=== PATIENT | female | born 1965 | race Caucasian/White ===

== ENCOUNTER 2016-07-12 11:08 | Inpatient (IN) | payer BC ==
[~2016-07-12] VITALS: Ht 165.1 cm; Wt 76.4 kg
[~2016-07-12 11:08] MED LIST: IBUP-103 PO
[2016-07-12] MEDS ORDERED: MISCCAP80 PO (11:35)
[2016-07-12] MEDS ORDERED: PRED20TA PO (11:35)
[2016-07-12] MEDS ORDERED: MOXI400T2 PO (11:35)
--- NOTE | 2016-07-12 11:54 | EMERGENCY ROOM VISIT NOTE ---
History Report prepared by Alana: Nésotr Hunter Under the Supervision of: Dr. Ellen Escobedo M.D. First contact with patient: 11:38 Chief Complaint: WEAKNESS Stated Complaint: TENDON MUSCLE REACTION TO MOXIFLOXIN-LT SIDE History of Present Illness The patient is a 50 year old female who presents to the Emergency Room with complaints of persistent left-sided weakness that was first noticed at 0100 yesterday. The patient notes that her left hip, knee and arm are feeling "rubbery." There are no worsening are relieving factors known to the pateint. The patient saw Dr. Stacy two days ago and was diagnosed with sinusitis. She was given prescriptions for moxifloxacin and prednisone. She had her first dose of moxifloxacin at 1800 that night. The patient first noticed the weakness when she woke up at 0100 that night to use the restroom. She did not take anything other than the antibiotic and prednisone. The patient's blood pressure was [address] she saw Dr[address] Stacy. The patient's partner notes that the patient often has elevated blood pressure when she sees a doctor. Source of History: patient, other (partner) Onset: 0100 yesterday Position: other (left side) Quality: other (weakness) Timing: other (persistent) Modifying Factors (Worsening): other (none) Modifying Factors (Relieving): other (none) Review of Systems See HPI for pertinent positives & negatives. A total of 10 systems reviewed and were otherwise negative. Past Medical & Surgical Medical Problems: (1) Bronchitis (2) Left-sided weakness (3) Migraine (4) Pneumonia Family History Diabetes mellitus Hypertension Lung disease Social History Smoking Status: Current Every Day Smoker Alcohol Use: none Marital Status: in relationship Housing Status: lives with significant other Occupation Status: employed Current/Historical Medications Scheduled Moxifloxacin Hcl (Avelox), 400 MG PO DAILY Prednisone (Prednisone), 0 PO DAILY Probiotic Product (Probiotic), 1 CAP PO DAILY Allergies Coded Allergies: Moxifloxacin (Unverified Allergy, Intermediate, WEAKNESS, OTHER SYMPTOMS TODAY., 07/12/16) POSSIBLE ALLERGY. PATIENT UNSURE, BUT JUST STARTED THIS MEDICATION AND WAS HAVING SYMPTOMS. 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 Physical Exam Vital Signs Date Time Temp Pulse Resp B/P Pulse Ox O2 Delivery O2 Flow Rate FiO2 3/18/17 17:02 79 18 154/101 96 Room Air 07/12/16 15:12 79 18 167/110 95 Room Air 07/12/16 13:50 83 07/12/16 13:23 88 20 158/94 Room Air 07/12/16 12:40 89 18 168/108 96 Room Air 07/12/16 11:12 36.8 76 20 196/116 96 Room Air Physical Exam Vital signs reviewed. General: Well-appearing female, in no significant distress. HEENT: No scleral icterus, PERRLA, neck supple. Atraumatic. Cardiovascular: Regular rate and rhythm, no extra sounds. Pulmonary: Clear to auscultation bilaterally, normal work of breathing. Abdomen: Soft, nontender, nondistended, positive bowel sounds. Musculoskeletal: Atraumatic, no peripheral edema. Neurologic: Patient awake alert and oriented x 3. Cranial nerves 2 through 12 grossly intact. Ataxia to the left upper extremity with 3/5 strength. 2/5 strength left lower extremity. 5/5 strength right upper and lower extremities. Skin: Warm, dry, no rash Medical Decision & Procedures ER Provider Diagnostic Interpretation: X-ray results as stated below per my interpretation and radiologist interpretation. Other radiology results as stated below per my review and radiologist interpretation: CHEST ONE VIEW PORTABLE CLINICAL HISTORY: CVA, HTN dyspnea COMPARISON STUDY: No previous studies for comparison. FINDINGS: The bones soft tissues and hemidiaphragms are normal. The cardiomediastinal silhouette is normal. The lungs are clear. The pulmonary vasculature is normal. IMPRESSION: Negative chest. Electronically signed by: Lexx Gore M.D. 07/12/2016 12:53 PM Dictated Date/Time: 07/12/2016 12:[address]AST CT DOSE: 537.48 mGy.cm HISTORY: Mental status change HTN, CVA sx TECHNIQUE: Multiaxial CT images of the head were performed without the use of intravenous contrast. Comparison: None. Findings: The paranasal sinuses and mastoid air cells are clear. The calvarium and skull base are intact. The ventricles and sulci are within normal limits. There is no mass, hematoma, midline shift. Small low density focus medially adjacent to the right lateral ventricle transaxial image 15 a small subacute infarct must be considered. No evidence for hemorrhage. Impression: Small subacute right periventricular infarct. No evidence for hemorrhage. Electronically signed by: Lexx Gore M.D. 07/12/2016 1:00 PM Dictated Date/Time: 07/12/2016 12:58 PM Laboratory Results Test 07/12/16 10:45 07/12/16 12:25 07/12/16 12:28 07/12/16 15:25 Urine Color YELLOW Urine Appearance CLEAR (CLEAR) Urine pH 7.5 (4.5-7.5) Urine Specific [place] 1.015 (1.000-1.030) Urine Protein NEG (NEG) Urine Glucose (UA) NEG (NEG) Urine Ketones NEG (NEG) Urine Occult Blood NEG (NEG) Urine Nitrite NEG (NEG) Urine Bilirubin NEG (NEG) Urine Urobilinogen NEG (NEG) Urine Leukocyte Esterase NEG (NEG) Bedside Troponin I 0.000 ng/ml (0-0.045) Laboratory results per my review. Medications Administered Medications (Trade) Dose Ordered Sig/Maurice Route Start Time Stop Time Status Last Admin Dose Admin Lorazepam (Ativan Inj) 0.5 mg Q4H PRN IV 07/12/16 14:15 08/11/16 14:14 07/12/16 22:24 0.5 MG Lorazepam (Ativan Inj) 2 mg STK-MED ONCE .ROUTE 07/12/16 15:05 07/12/16 15:08 DC 07/12/16 15:11 0.5 MG ECG Indication: weakness Rate (beats per minute): 81 Rhythm: normal sinus Findings: nonspecific-ST abn (Lateral), prolonged QT (QTC 480), no ectopy ED Course 1140: Past medical records reviewed. The patient was evaluated in room A10. A complete history and physical examination was performed. 1211: Normodyne 10 mg IV. 1402: Discussed the case with Dr. Vargas, [facility] Hospitalist. The patient will be evaluated. Medical Decision Differential diagnosis: Etiologies such as metabolic, infection, hypo/hyperglycemia, electrolyte abnormalities, cardiac sources, intracerebral event, toxicologic, neurologic, as well as others were entertained. This patient was evaluated and appeared to be in no significant distress. Physical examination is highly concerning for CVA as the patient is markedly hypertensive with notable ataxia. Patient has appreciable weakness to the left upper and lower extremities. CT scan of the head is performed and reveals a right periventricular infarct. Laboratory work is fairly unrevealing. Patient' s blood pressure did improve without any intervention. The IV labetalol ordered was not administered. EKG reveals a sinus rhythm. Patient and her partner were informed of the findings. She will be evaluated by the hospitalist service for further management. Consults Time Called: 1350 Consulting Physician: Dr. Vargas [facility]. Returned Call: [phone]: Discussed the case with Dr. Vargas [facility]. The patient will be evaluated. Impression Primary Impression: CVA (cerebral vascular accident) Additional Impression: Weakness Scribe Attestation The scribe's documentation has been prepared under my direction and personally reviewed by me in its entirety. I confirm that the note above accurately reflects all work, treatment, procedures, and medical decision making performed by me. Departure Information Dispostion Being Evaluated By Hospitalist Referrals Nasir Stacy M.D. (PCP) Patient Instructions My [facility] Health Problem Qualifiers Primary Impression: CVA (cerebral vascular accident) CVA mechanism: embolism Laterality of affected vessel: right
[2016-07-12] MEDS ORDERED: LABETALOL HCL IV 5 MG/ML 20ML IV STA (12:11)
[2016-07-12 12:34] LABS: BASO % 0.2 %; BASO ABS # 0.02 K/uL (0-0.2); COMPLETE YES; EOS % 0.4 %; IG% 0.3 %; LYMPH % 16.1 %; LYMPH ABS # 1.87 K/uL (1.2-3.4); MEAN CELL VOLUME 91.8 fL (80-100); MEAN CORPUSCULAR HGB CONC 33.8 g/dl (32-36); MONO % 2.5 %; NEUT % 80.5 %; PLATELET COUNT 301 K/uL (130-400); WHITE BLOOD COUNT 11.65 K/uL (4.8-10.8)
[2016-07-12 12:49] LABS: INR 0.9 (0.9-1.1); PROTHROMBIN TIME (PATIENT) 9.7 SECONDS (9.0-12.0)
--- NOTE | 2016-07-12 12:55 | DIAGNOSTIC IMAGING REPORT ---
CHEST ONE VIEW PORTABLE CLINICAL HISTORY: CVA, HTN dyspnea COMPARISON STUDY: No previous studies for comparison. FINDINGS: The bones soft tissues and hemidiaphragms are normal. The cardiomediastinal silhouette is normal. The lungs are clear. The pulmonary vasculature is normal. IMPRESSION: Negative chest. Electronically signed by: Lexx Gore M.D. 07/12/2016 12:53 PM Dictated Date/Time: 07/12/2016 12:53 PM
--- NOTE | 2016-07-12 13:01 | DIAGNOSTIC IMAGING REPORT ---
HEAD CT NONCONTRAST CT DOSE: 537.48 mGy.cm HISTORY: Mental status change HTN, CVA sx TECHNIQUE: Multiaxial CT images of the head were performed without the use of intravenous contrast. Comparison: None. Findings: The paranasal sinuses and mastoid air cells are clear. The calvarium and skull base are intact. The ventricles and sulci are within normal limits. There is no mass, hematoma, midline shift. Small low density focus medially adjacent to the right lateral ventricle transaxial image 15 a small subacute infarct must be considered. No evidence for hemorrhage. Impression: Small subacute right periventricular infarct. No evidence for hemorrhage. Electronically signed by: Lexx Gore M.D. 07/12/2016 1:00 PM Dictated Date/Time: 07/12/2016 12:58 PM
[2016-07-12 13:15] LABS: ALT/SGPT 16 U/L (12-78); BLOOD UREA NITROGEN 10 mg/dl (7-18); BUN/CREATININE RATIO 14.6 (10-20); CALCIUM 9.3 mg/dl (8.5-10.1); CARBON DIOXIDE 25 mmol/L (21-32); CHLORIDE 108 mmol/L (98-107); CREATININE 0.67 mg/dl (0.60-1.20); GLUCOSE 125 mg/dl (70-99); MAGNESIUM 2.4 mg/dl (1.8-2.4); POTASSIUM 3.5 mmol/L (3.5-5.1); SODIUM 143 mmol/L (136-145)
[2016-07-12 13:19] LABS: ALKALINE PHOSPHATASE 89 U/L (45-117); AST/SGOT 10 U/L (15-37); CKMB/CK RATIO 2.2 (0-3.0)
[2016-07-12 13:29] LABS: MANUAL MICROSCOPIC REQUIRED? NO; URINE APPEARANCE CLEAR (CLEAR); URINE BILIRUBIN NEG (NEG); URINE COLOR YELLOW; URINE NITRITE NEG (NEG); URINE PH 7.5 (4.5-7.5); URINE SPECIFIC GRAVITY 1.015 (1.000-1.030); UROBILINOGEN NEG (NEG)
[2016-07-12 13:31] LABS: REVIEW REQ? NO; SULFASALICYLIC ACID NEG (NEG)
[2016-07-12 13:33] LABS: ZZUR CULT IF INDIC CLEAN CATCH NO
[2016-07-12] MEDS ORDERED: ACETAMINOPHEN 325 MG TAB PO PRN (14:15)
[2016-07-12] MEDS ORDERED: LORAZEPAM 2 MG/ML 1 ML VIAL IV PRN (14:15)
[2016-07-12] MEDS ORDERED: ONDANSETRON INJ 2 MG/ML 2 ML VIAL IV PRN (14:15)
[2016-07-12] MEDS ORDERED: ACETAMINOPHEN IV 100 ML IV PRN (14:15)
[2016-07-12] MEDS ORDERED: PHARMACIST DISCHARGE MED REC CONSULT PRN (14:15)
[2016-07-12] MEDS ORDERED: METOPROLOL TARTRATE 1 MG/ML VIAL IV PRN (14:45)
--- NOTE | 2016-07-12 14:45 | History and Physical ---
History & Physical Date & Time of Service: Jul 12, 2016 at 14:35 Chief Complaint: Tendon Muscle Reaction To Moxifloxin-Lt Side Primary Care Physician: Nasir Stacy M.D. History of Present Illness Source: patient, friend The patient is a 50-year-old female who presents emergency department with complaint of left-sided weakness began at 0100 hrs. yesterday. She reports that she had been recently diagnosed with a sinus infection and started moxifloxacin and prednisone and had her first dosing of moxifloxacin 5 hours prior to symptoms developed. She first noticed the symptoms when she had gotten up to go to the restroom. Her blood pressures typically in the 150s to 160s when in the doctor's office, but otherwise is normal. She's had no recent travels, no sick exposures. She's had no previous occurrence the type of symptoms. She has had headaches in the past. Past Medical/Surgical History Medical Problems: (1) Bronchitis Status: Resolved (2) Migraine Status: Chronic (3) Pneumonia Status: Resolved Family History Diabetes mellitus Hypertension Lung disease Social History Smoking Status: Current Every Day Smoker Smokeless Tobacco Use: No Alcohol Use: none Drug Use: none Marital Status: in relationship Occupational Status: employed [employer] History of MDRO: No Allergies Coded Allergies: Moxifloxacin (Unverified Allergy, Intermediate, WEAKNESS, OTHER SYMPTOMS TODAY., 07/12/16) POSSIBLE ALLERGY. PATIENT UNSURE, BUT JUST STARTED THIS MEDICATION AND WAS HAVING SYMPTOMS. 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 Home Medications Scheduled Moxifloxacin Hcl (Avelox), 400 MG PO DAILY Prednisone (Prednisone), 0 PO DAILY Probiotic Product (Probiotic), 1 CAP PO DAILY Review of Systems The patient denies chest pain, palpitations, shortness of breath, cough, lower extremity swelling, vision change, hearing change, sore throat, fevers, chills, sweats, weight change, fatigue, nausea, vomiting, abdominal pain, pelvic pain, blood in urine or stool, dysuria, urinary frequency or urgency, memory loss, rash, abnormal bruising or bleeding, arthralgias or myalgias, back or neck pain , night sweats, or allergy symptoms. The review of systems is otherwise negative other than for that already noted above, and at least 10 systems have been reviewed. Physical Exam Vital Signs Date Time Temp Pulse Resp B/P Pulse Ox O2 Delivery O2 Flow Rate FiO2 07/12/16 13:50 83 07/12/16 13:23 88 20 158/94 Room Air 07/12/16 12:40 89 18 168/108 96 Room Air 07/12/16 11:12 36.8 76 20 196/116 96 Room Air The patient is awake, well-developed and adequately nourished, alert and oriented 3, normocephalic and atraumatic, lying in bed and in no acute distress. HEENT--PERRL, EOMI, mucous membranes and oropharynx moist. Neck--supple, no JVD or bruits, thyroid normal, trachea midline, no adenopathy. Heart--normal S1 and S2, no extra beats, no murmurs, rubs or gallops. Lungs--clear bilaterally with good air movement, no respiratory distress, no accessory muscle use. Abdomen--normal bowel sounds and soft, nontender and nondistended, no hernias or masses, no organomegaly. Extremities--no cyanosis, clubbing or edema. There are good distal pulses b/l. Dermatologic--normal skin turgor, normal color, warm and dry, no abnormal lymph nodes, no rash. Neurologic--decreased roll icer strength left upper extremity, equal muscle strength bilateral lower extremities, normal sensation upper and lower extremities. Rheumatologic--limited by neurologic process. Psychiatric--mildly anxious. Diagnostics Laboratory Results Results Past 24 Hours Test 07/12/16 10:45 07/12/16 12:25 07/12/16 12:28 07/12/16 14:02 Range/Units Urine Color YELLOW Urine Appearance CLEAR CLEAR Urine pH 7.5 4.5-7.5 Urine Specific [place] 1.015 1.000-1.030 Urine Protein NEG NEG Urine Glucose (UA) NEG NEG Urine Ketones NEG NEG Urine Occult Blood NEG NEG Urine Nitrite NEG NEG Urine Bilirubin NEG NEG Urine Urobilinogen NEG NEG Urine Leukocyte Esterase NEG NEG White Blood Count 11.65 4.8-10.8 K/uL Red Blood Count 4.90 4.2-5.4 M/uL Hemoglobin 15.2 12.0-16.0 g/dL Hematocrit 45.0 37-47 % Mean Corpuscular Volume 91.8 80-100 fL Mean Corpuscular Hemoglobin 31.0 25-34 pg Mean Corpuscular Hemoglobin Concent 33.8 32-36 g/dl Platelet Count 301 130-400 K/uL Mean Platelet Volume 9.0 7.4-10.4 fL Neutrophils (%) (Auto) 80.5 % Lymphocytes (%) (Auto) 16.1 % Monocytes (%) (Auto) 2.5 % Eosinophils (%) (Auto) 0.4 % Basophils (%) (Auto) 0.2 % Neutrophils # (Auto) 9.39 1.4-6.5 K/uL Lymphocytes # (Auto) 1.87 1.2-3.4 K/uL Monocytes # (Auto) 0.29 0.11-0.59 K/uL Eosinophils # (Auto) 0.05 0-0.5 K/uL Basophils # (Auto) 0.02 0-0.2 K/uL RDW Standard Deviation 44.7 36.4-46.3 fL RDW Coefficient of Variation 13.4 11.5-14.5 % Immature Granulocyte % (Auto) 0.3 % Immature Granulocyte # (Auto) 0.03 0.00-0.02 K/uL Prothrombin Time 9.7 9.0-12.0 SECONDS Prothromb Time International Ratio 0.9 0.9-1.1 Activated Partial Thromboplast Time 26.4 21.0-31.0 SECONDS Partial Thromboplastin Ratio 1.0 Sodium Level 143 136-145 mmol/L Potassium Level 3.5 3.5-5.1 mmol/L Chloride Level 108 98-107 mmol/L Carbon Dioxide Level 25 21-32 mmol/L Anion Gap 10.0 3-11 mmol/L Blood Urea Nitrogen 10 7-18 mg/dl Creatinine 0.67 0.60-1.20 mg/dl Est Creatinine Clear Calc Drug Dose 105.9 ml/min Estimated GFR () 120.5 Estimated GFR (Non- 103.9 BUN/Creatinine Ratio 14.6 10-20 Random Glucose 125 70-99 mg/dl Calcium Level 9.3 8.5-10.1 mg/dl Magnesium Level 2.4 1.8-2.4 mg/dl Total Bilirubin 0.3 0.2-1 mg/dl Direct Bilirubin < 0.1 0-0.2 mg/dl Aspartate Amino Transf (AST/SGOT) 10 15-37 U/L Alanine Aminotransferase (ALT/SGPT) 16 12-78 U/L Alkaline Phosphatase 89 45-117 U/L Total Creatine Kinase 37 26-192 U/L Creatine Kinase MB 0.8 0.5-3.6 ng/ml Creatine Kinase MB Ratio 2.2 0-3.0 Total Protein 7.4 6.4-8.2 gm/dl Albumin 3.7 3.4-5.0 gm/dl Bedside Troponin I 0.000 0-0.045 ng/ml Diagnostic Radiology Patient Name: MAGED ROBERTO Unit Number: [id number] Dictated: 07/12/161257 Transcribed: 07/12/161257 MS Printed Date/Time: [~ rep prt dt]/[~ rep prt tm] [~ rep ct labl] - [~ rep ct ivnm] [facility] [place] [address] Dictated: 07/12/161257 Transcribed: 07/12/16 1258 MS Printed Date/Time: [~ rep prt dt]/[~ rep prt tm] [~ rep ct labl] - [~ rep ct ivnm] HEAD CT NONCONTRAST CT DOSE: 537.48 mGy.cm HISTORY: Mental status change HTN, CVA sx TECHNIQUE: Multiaxial CT images of the head were performed without the use of intravenous contrast. Comparison: None. Findings: The paranasal sinuses and mastoid air cells are clear. The calvarium and skull base are intact. The ventricles and sulci are within normal limits. There is no mass, hematoma, midline shift. Small low density focus medially adjacent to the right lateral ventricle transaxial image 15 a small subacute infarct must be considered. No evidence for hemorrhage. Impression: Small subacute right periventricular infarct. No evidence for hemorrhage. Electronically signed by: Lexx Gore M.D. 07/12/2016 1:00 PM Dictated Date/Time: 07/12/2016 12:58 PM The status of this report is Signed. Draft = Not yet reviewed or approved by Radiologist. Signed = Reviewed and approved by Radiologist. <AttendingPhy></AttendingPhy> <FamilyPhy>Nasir Stacy M.D.</FamilyPhy> < PrimaryPhy>Nasir Stacy M.D.</PrimaryPhy> <UnitNumber>[id number]</UnitNumber > <VisitNumber>[id number]</VisitNumber> <PatientName>MAGED ROBERTO</ PatientName> <DateOfBirth>1965</DateOfBirth> <Location>[facility]</Location> < ServiceDate>07/12/16</ServiceDate> <MNE>ESINDI</MNE> <OrderingPhy>Ellen Escobedo M.D.</OrderingPhy> <OrderingPhyMNE>f rep ord dr lewis</OrderingPhyMNE> < DictatingPhyMNE>f rep dict dr lewis</DictatingPhyMNE> <CCListMNE>f rep ct mne</ CCListMNE> <AdmittingPhyMNE>f pt admit dr lewis</AdmittingPhyMNE> <AttendingPhyMNE >f pt attend dr lewis</AttendingPhyMNE> <ConsultingPhyMNE>f pt consult dr lewis</ConsultingPhyMNE> <FamilyPhyMNE>f pt fam dr lewis</FamilyPhyMNE> <OtherPhyMNE>f pt other dr lewis</OtherPhyMNE> < PrimaryPhyMNE>f pt prim care dr lewis</PrimaryPhyMNE> <ReferringPhyMNE>f pt referring dr lewis</ReferringPhyMNE> Patient Name: MAGED ROBERTO Unit Number: [id number] Dictated: 07/12/161252 Transcribed: 07/12/16 1253 MS Printed Date/Time: [~ rep prt dt]/[~ rep prt tm] [~ rep ct labl] - [~ rep ct ivnm] [facility] [place] [address] Dictated: 07/12/16 1253 Transcribed: 07/12/16 1253 MS Printed Date/Time: [~ rep prt dt]/[~ rep prt tm] [~ rep ct labl] - [~ rep ct ivnm] CHEST ONE VIEW PORTABLE CLINICAL HISTORY: CVA, HTN dyspnea COMPARISON STUDY: No previous studies for comparison. FINDINGS: The bones soft tissues and hemidiaphragms are normal. The cardiomediastinal silhouette is normal. The lungs are clear. The pulmonary vasculature is normal. IMPRESSION: Negative chest. Electronically signed by: Lexx Gore M.D. 07/12/2016 12:53 PM Dictated Date/Time: 07/12/2016 12:53 PM The status of this report is Signed. Draft = Not yet reviewed or approved by Radiologist. Signed = Reviewed and approved by Radiologist. <AttendingPhy></AttendingPhy> <FamilyPhy>Nasir Stacy M.D.</FamilyPhy> < PrimaryPhy>Nasir Stacy M.D.</PrimaryPhy> <UnitNumber>[id number]</UnitNumber > <VisitNumber>[id number]</VisitNumber> <PatientName>PARDEEPMAGED Melchor</ PatientName> <DateOfBirth>1965</DateOfBirth> <Location>[facility]</Location> < ServiceDate>07/12/16</ServiceDate> <MNE>ESINDI</MNE> <OrderingPhy>Ellen Escobedo M.D.</OrderingPhy> <OrderingPhyMNE>f rep ord dr lewis</OrderingPhyMNE> < DictatingPhyMNE>f rep dict dr lewis</DictatingPhyMNE> <CCListMNE>f rep ct debbie</ CCListMNE> <AdmittingPhyMNE>f pt admit dr lewis</AdmittingPhyMNE> <AttendingPhyMNE >f pt attend dr lewis</AttendingPhyMNE> <ConsultingPhyMNE>f pt consult dr lewis</ConsultingPhyMNE> <FamilyPhyMNE>f pt fam dr lewis</FamilyPhyMNE> <OtherPhyMNE>f pt other dr lewis</OtherPhyMNE> < PrimaryPhyMNE>f pt prim care dr lewis</PrimaryPhyMNE> <ReferringPhyMNE>f pt referring dr lewis</ReferringPhyMNE> EKG EKG shows normal sinus rhythm at 81 bpm, with nonspecific inferior lateral EKG changes. Impression Assessment and Plan Acute right periventricular infarct with left-sided weakness--CT of the head was abnormal. The patient will get an MRI of the brain combo, MRA of the neck combo, MRA of the head without contrast, and a 2-D echocardiogram with Dopplers. EKG shows nonspecific changes inferiorly laterally. She'll be admitted to the telemetry unit, for serial cardiac enzymes, and cardiac rhythm monitoring. We'll order an arterial hypercoagulable workup. Place on aspirin 81 mg by mouth every morning. We will allow permissive hypertension to 170/ 100. Consult physical therapy, occupational therapy, speech therapy, pharmacy, neurology. We'll order a fasting lipid profile and hemoglobin A1c. Further management based on results of the above tests. Level of Care Telemetry Advanced Directives Existing Advance Directive: No Existing Living Will: No Existing Power of Front Maker: No Resuscitation Status FULL RESUSCITATION VTE Prophylaxis Risk Level: High Given or contraindicated: Enoxaparin (Lovenox)SQ Social Service Consult None Apply
[2016-07-12] MEDS ORDERED: LORAZEPAM 2 MG/ML 1 ML VIAL ONE (15:05)
--- NOTE | 2016-07-12 17:20 | DIAGNOSTIC IMAGING REPORT ---
MRI OF THE BRAIN WITHOUT AND WITH IV CONTRAST CLINICAL HISTORY: Stroke mental status change COMPARISON STUDY: No previous studies for comparison. TECHNIQUE: Utilizing a 1.5 Dorothea magnet and dedicated coil, multiplanar, multiecho imaging of the brain was performed pre and postcontrast administration. IV administration of 8 mL of Gadavist contrast was uneventful. FINDINGS: Diffusion-weighted images show a subacute right periventricular infarct corresponding to the CT findings. This is seen to a minimal degree on the axial T2 images as well as the coronal FLAIR images. Remainder the study shows a minimal chronic small vessel change in the periventricular deep white matter regions. Several small foci of increased signal are identified in the optic radiation regions. Postcontrast images show no significant postcontrast enhancement. Ventricular system is midline. Sella and parasellar regions are unremarkable. IMPRESSION: 1. 12 x 8 mm subacute right periventricular infarct corresponding to the procedure described CT findings. 2. Several foci of increased signal in the periventricular regions bilaterally. This appearance is most consistent with that of chronic small vessel change, although a demyelinating disorder is possible as a secondary possibility. 3. Study is otherwise negative. 4. Moderate mucosal thickening left maxillary sinus. Electronically signed by: Lexx Gore M.D. 07/12/2016 5:19 PM Dictated Date/Time: 07/12/2016 5:15 PM
--- NOTE | 2016-07-12 18:04 | DIAGNOSTIC IMAGING REPORT ---
NECK MRA HISTORY: Mental status change Stroke TECHNIQUE: [id number] and gadolinium-enhanced MRA of the neck was performed both before and after the intravenous administration of contrast. All measurements were calculated based on NASCET criteria. COMPARISON STUDY: None. FINDINGS: Limited study due to considerable patient motion. There is no significant stenosis, occlusion, or dissection identified within the bilateral common carotid, internal carotid, or vertebral arteries. No major stenotic process. IMPRESSION: Limited study due to patient motion. Considerable artifact. No major stenotic process. Electronically signed by: Lexx Gore M.D. 07/12/2016 6:02 PM Dictated Date/Time: 07/12/2016 5:59 PM
[2016-07-12 18:05] VITALS: O2SAT 95; BMI 28.5
--- NOTE | 2016-07-12 18:06 | DIAGNOSTIC IMAGING REPORT ---
Brain MRA HISTORY: Stroke Stroke - Attention to [place] TECHNIQUE: 3-D [id number] MRA of the brain was performed without contrast. COMPARISON STUDY: None. FINDINGS: Limited study due to considerable patient motion. No major stenotic process is appreciated. Major components of the anterior middle and posterior cerebral circulation are intact. Vertebral basilar system appears to be unremarkable. IMPRESSION: No significant stenosis, occlusion, or aneurysm within the [place]. This is within limitations of considerable patient motion artifact Electronically signed by: Lexx Gore M.D. 07/12/2016 6:05 PM Dictated Date/Time: 07/12/2016 6:04 PM
[2016-07-12 18:27] VITALS: BP 164/97; PULSE 92; TEMP 36.6; O2SAT 96
[2016-07-12] MEDS: NSS + 20MEQ KCL 1000ML 1,000 ML IV SCH (20:20)
[2016-07-12 23:51] VITALS: BP 132/83; PULSE 75; TEMP 36.5; O2SAT 90
[2016-07-13 03:57] LABS: HEMATOCRIT 40.6 % (37-47); MEAN CELL VOLUME 91.4 fL (80-100); MEAN CORPUSCULAR HEMOGLOBIN 31.8 pg (25-34); MEAN CORPUSCULAR HGB CONC 34.7 g/dl (32-36); MEAN PLATELET VOLUME 8.9 fL (7.4-10.4); PLATELET COUNT 266 K/uL (130-400); RED BLOOD COUNT 4.44 M/uL (4.2-5.4); WHITE BLOOD COUNT 10.79 K/uL (4.8-10.8)
[2016-07-13 04:07] LABS: PROTHROMBIN TIME (PATIENT) 10.2 SECONDS (9.0-12.0)
[2016-07-13 04:16] LABS: ALT/SGPT 15 U/L (12-78); AST/SGOT 8 U/L (15-37); BLOOD UREA NITROGEN 15 mg/dl (7-18); BUN/CREATININE RATIO 23.8 (10-20); CALCIUM 8.3 mg/dl (8.5-10.1); CARBON DIOXIDE 26 mmol/L (21-32); CHLORIDE 111 mmol/L (98-107); CREATININE 0.63 mg/dl (0.60-1.20); GLUCOSE 109 mg/dl (70-99); MAGNESIUM 2.4 mg/dl (1.8-2.4); POTASSIUM 3.7 mmol/L (3.5-5.1); SODIUM 144 mmol/L (136-145)
[2016-07-13 04:17] LABS: BASO % 0.3 %; BASO ABS # 0.03 K/uL (0-0.2); COMPLETE YES; IG% 0.3 %; LYMPH % 38.8 %; LYMPH ABS # 4.19 K/uL (1.2-3.4); MONO % 7.1 %; NEUT % 52.5 %
[2016-07-13 04:32] VITALS: BP 137/82; PULSE 75; TEMP 36.4; O2SAT 95
[2016-07-13 04:35] LABS: ALKALINE PHOSPHATASE 69 U/L (45-117); CHOLESTEROL 189 mg/dl (0-200); CHOLESTEROL/HDL RATIO 3.3; HDL CHOLESTEROL 57 mg/dl; LDL CHOLESTEROL CALCULATED 109 mg/dl; TRIGLYCERIDES 113 mg/dl (0-150); VERY LOW DENSITY LIPOPROT CALC 23 mg/dl
[2016-07-13] MEDS: NSS + 20MEQ KCL 1000ML 1,000 ML IV SCH ×3 (07:51→21:18)
[2016-07-13] MEDS ORDERED: ASPIRIN 81 MG ECTAB PO SCH (09:00)
--- NOTE | 2016-07-13 11:15 | ECHOCARDIOGRAM REPORT ---
*NOTICE TO RECEIVING DEMOCRAT AGENCY This information is strictly Confidential and protected under [place] law. [place] law prohibits you from making any further disclosure of this information unless further disclosure is expressly permitted by the written consent of the person to whom it pertains or is authorized by law. A general authorization for the release of medical or other information is not sufficient for this purpose. Hospital accepts no responsibility if the information is made available to any other person, INCLUDING THE PATIENT. Interpretation Summary * Name: MAGED ROBERTO Study Date: 07/13/2016 07:37 AM BP: 137/82 mmHg * Patient Location: [facility]\S\N289\S\2 HR: 75 * : 1965 (M/d/yyyy) Gender: Female Height: 65 in * Age: 50 yrs Ethnicity: CA Weight: 171 lb * Ordering Physician: Alejandro Vargas * Referring Physician: Self, Referred * Performed By: Isiah Farmer RCS * * Reason For Study: Cerebral Ischemia/Embolus * BSA: 1.9 m2 * -- Conclusions -- * Left ventricular systolic function is normal. * Patent foramen ovale * There is mild to moderate mitral regurgitation. * Right ventricular systolic pressure is normal. * Doppler evaluation suggestive of diastolic dysfunction Procedure Details * A complete two-dimensional transthoracic echocardiogram was performed (2D, M-mode, Doppler and color flow Doppler). * A saline contrast injection was performed to assess for cardiac shunting. * The injection was performed through an intravenous line in the right arm. * The attending nurse who injected the saline contrast was Helen Neves RN. * A total of 20 cc of agitated saline was given. Left Ventricle * The left ventricle is normal in size. * There is no thrombus. * There is normal left ventricular wall thickness. * Ejection Fraction = 60-65%. * Left ventricular systolic function is normal. * The transmitral spectral Doppler flow pattern is suggestive of pseudonormalization. Right Ventricle * The right ventricle is grossly normal size. * The right ventricular systolic function is normal. Atria * The left atrial size is normal. * Right atrial size is normal. * Patent foramen ovale * Injection of contrast documented an interatrial shunt. Mitral Valve * There is mild to moderate mitral regurgitation. Tricuspid Valve * There is mild tricuspid regurgitation. * Right ventricular systolic pressure is normal. Aortic Valve * Aortic valve likely trileaflet * No hemodynamically significant valvular aortic stenosis. * There is no significant aortic regurgitation. Great Vessels * The aortic root and proximal ascending aorta are normal sized. Pericardium/Pleural * There is no pericardial effusion. MMode 2D Measurements and Calculations IVSd 0.99 cm IVSs 1.3 cm LVIDd 4.1 cm LVIDs 2.6 cm LVPWd 0.92 cm LVPWs 1.3 cm IVS/LVPW 1.1 FS 35.0 % EDV(Teich) 73.0 ml ESV(Teich) 25.7 ml EF(Teich) 64.7 % EDV(cubed) 67.5 ml ESV(cubed) 18.6 ml EF(cubed) 72.5 % % IVS thick 35.0 % % LVPW thick 40.0 % LV mass(C)d 122.9 grams LV mass(C)dI 66.4 grams/m\S\2 LV mass(C)s 107.5 grams LV mass(C)sI 58.1 grams/m\S\2 CO(Teich) 3.2 l/min CI(Teich) 1.7 l/min/m\S\2 SV(Teich) 47.3 ml SI(Teich) 25.5 ml/m\S\2 CO(cubed) 3.3 l/min CI(cubed) 1.8 l/min/m\S\2 SV(cubed) 48.9 ml SI(cubed) 26.4 ml/m\S\2 Ao root diam 3.4 cm Ao root area 9.1 cm\S\2 ACS 1.5 cm LA dimension 3.7 cm LA/Ao 1.1 LVAd ap4 30.6 cm\S\2 LVLd ap4 8.2 cm EDV(MOD-sp4) 97.0 ml LVAs ap4 15.6 cm\S\2 LVLs ap4 6.3 cm ESV(MOD-sp4) 34.0 ml EF(MOD-sp4) 64.9 % LVAd ap2 36.2 cm\S\2 LVLd ap2 9.6 cm EDV(MOD-sp2) 115.0 ml LVAs ap2 17.7 cm\S\2 LVLs ap2 7.2 cm ESV(MOD-sp2) 37.0 ml EF(MOD-sp2) 67.8 % CO(MOD-sp4) 4.2 l/min CI(MOD-sp4) 2.3 l/min/m\S\2 SV(MOD-sp4) 63.0 ml SI(MOD-sp4) 34.0 ml/m\S\2 CO(MOD-sp2) 5.2 l/min CI(MOD-sp2) 2.8 l/min/m\S\2 SV(MOD-sp2) 78.0 ml SI(MOD-sp2) 42.1 ml/m\S\2 Doppler Measurements and Calculations MV E max reji 66.0 cm/sec MV A max reji 58.0 cm/sec MV E/A 1.1 MV P1/2t max reji 74.2 cm/sec MV P1/2t 64.8 msec MVA(P1/2t) 3.4 cm\S\2 MV dec slope 335.7 cm/sec\S\2 MV dec time 0.24 sec Ao V2 max 111.7 cm/sec Ao max PG 5.0 mmHg Ao max PG (full) 0.96 mmHg LV V1 max PG 4.0 mmHg LV V1 max 100.4 cm/sec PA V2 max 82.9 cm/sec PA max PG 2.8 mmHg PI max reji 156.1 cm/sec PI max PG 9.7 mmHg PI dec slope 149.2 cm/sec\S\2 PI P1/2t 306.4 msec TR max reji 224.6 cm/sec
--- NOTE | 2016-07-13 11:17 | Progress Note ---
Subjective Date of Service: Jul 13, 2016. Subjective Pt evaluation today including: conversation w/ patient, conversation w/ family Pt states that her L UE is feeling less "rubbery" today and that she was able to hold a coffee cup earlier. Her L LE still feels "rubbery". She has not been OOB to test her weight bearing status yet today. No pain in her limbs. No facial sx or confusion with this episode. Ate without issue. Pt denies fever , SOB, chest pain, abd pain, n/v/c/d, LE pain or swelling. ROS as noted above, otherwise neg. Pt states she smokes 1 pack of cigarettes every 2 days roughly. Her partner also smokes, but only usually if pt is smoking. She started smoking in 1995. Pt states that she has thought about quitting, but that she has recently had some very stressful life situations at home. Her mother passed recently, which was quite hard on her. She and her partner also have custody of her goddaughter and there is some sort of CYS case open with the parents of her goddaughter. Pt did not go into details about this, but became quite tearful discussing this and states that these situations have made it difficult for her to work on smoking cessation. Pt has not had a cigarette in 2 days and has not been using a patch while admitted. She is hoping to maintain her "cold turkey" status on d/c. Her partner is present and states that this will be a good time for both of them to quit. Pt states that her mother had a "mini stroke" at one point, but no family members with full CVA hx that she is aware of. Problem List Medical Problems: (1) CVA (cerebral vascular accident) Status: Acute (2) Weakness Status: Acute Objective Vital Signs Date Time Temp Pulse Resp B/P Pulse Ox O2 Delivery O2 Flow Rate FiO2 07/13/16 08:00 Room Air 07/13/16 04:32 36.4 75 18 137/82 95 Room Air 07/13/16 04:00 Room Air 07/13/16 00:00 Room Air 07/12/16 23:51 36.5 75 20 132/83 90 CPAP 07/12/16 20:00 Room Air 07/12/16 18:27 36.6 92 18 164/97 96 Room Air 07/12/16 18:05 95 Room Air 07/12/16 17:57 71 20 170/98 95 07/12/16 17:02 79 18 154/101 96 Room Air 07/12/16 15:12 79 18 167/110 95 Room Air 07/12/16 13:50 83 07/12/16 13:23 88 20 158/94 Room Air 07/12/16 12:40 89 18 168/108 96 Room Air 07/12/16 11:12 36.8 76 20 196/116 96 Room Air Physical Exam General Appearance: WD/WN, no apparent distress Respiratory/Chest: normal breath sounds, no respiratory distress Cardiovascular: regular rate, rhythm, no edema Abdomen: non tender, soft Extremities: non-tender, no pedal edema Neurologic/Psychiatric: research chemist II-XII nml as tested, alert, oriented x 3, + pertinent finding (L LE with 4/5 strength and ROM. Can flex at the hip against gravity, but less than the R and some strength against resistence. = 5/5 UE drum printer strength, = plantar dorsi flexion against resistence) Skin: normal color, warm/dry Laboratory Results Last 24 Hours Test 07/12/16 12:25 07/12/16 12:28 07/12/16 15:25 07/12/16 20:21 White Blood Count 11.65 K/uL Red Blood Count 4.90 M/uL Hemoglobin 15.2 g/dL Hematocrit 45.0 % Mean Corpuscular Volume 91.8 fL Mean Corpuscular Hemoglobin 31.0 pg Mean Corpuscular Hemoglobin Concent 33.8 g/dl Platelet Count 301 K/uL Mean Platelet Volume 9.0 fL Neutrophils (%) (Auto) 80.5 % Lymphocytes (%) (Auto) 16.1 % Monocytes (%) (Auto) 2.5 % Eosinophils (%) (Auto) 0.4 % Basophils (%) (Auto) 0.2 % Neutrophils # (Auto) 9.39 K/uL Lymphocytes # (Auto) 1.87 K/uL Monocytes # (Auto) 0.29 K/uL Eosinophils # (Auto) 0.05 K/uL Basophils # (Auto) 0.02 K/uL RDW Standard Deviation 44.7 fL RDW Coefficient of Variation 13.4 % Immature Granulocyte % (Auto) 0.3 % Immature Granulocyte # (Auto) 0.03 K/uL Prothrombin Time 9.7 SECONDS Prothromb Time International Ratio 0.9 Activated Partial Thromboplast Time 26.4 SECONDS Partial Thromboplastin Ratio 1.0 Sodium Level 143 mmol/L Potassium Level 3.5 mmol/L Chloride Level 108 mmol/L Carbon Dioxide Level 25 mmol/L Anion Gap 10.0 mmol/L Blood Urea Nitrogen 10 mg/dl Creatinine 0.67 mg/dl Est Creatinine Clear Calc Drug Dose 105.9 ml/min Estimated GFR () 120.5 Estimated GFR (Non- 103.9 BUN/Creatinine Ratio 14.6 Random Glucose 125 mg/dl Calcium Level 9.3 mg/dl Magnesium Level 2.4 mg/dl Total Bilirubin 0.3 mg/dl Direct Bilirubin < 0.1 mg/dl Aspartate Amino Transf (AST/SGOT) 10 U/L Alanine Aminotransferase (ALT/SGPT) 16 U/L Alkaline Phosphatase 89 U/L Total Creatine Kinase 37 U/L 34 U/L Creatine Kinase MB 0.8 ng/ml < 0.5 ng/ml Creatine Kinase MB Ratio 2.2 Total Protein 7.4 gm/dl Albumin 3.7 gm/dl Bedside Troponin I 0.000 ng/ml Troponin I < 0.015 ng/ml Test 07/13/16 03:45 07/13/16 10:55 White Blood Count 10.79 K/uL Red Blood Count 4.44 M/uL Hemoglobin 14.1 g/dL Hematocrit 40.6 % Mean Corpuscular Volume 91.4 fL Mean Corpuscular Hemoglobin 31.8 pg Mean Corpuscular Hemoglobin Concent 34.7 g/dl Platelet Count 266 K/uL Mean Platelet Volume 8.9 fL Neutrophils (%) (Auto) 52.5 % Lymphocytes (%) (Auto) 38.8 % Monocytes (%) (Auto) 7.1 % Eosinophils (%) (Auto) 1.0 % Basophils (%) (Auto) 0.3 % Neutrophils # (Auto) 5.66 K/uL Lymphocytes # (Auto) 4.19 K/uL Monocytes # (Auto) 0.77 K/uL Eosinophils # (Auto) 0.11 K/uL Basophils # (Auto) 0.03 K/uL RDW Standard Deviation 44.6 fL RDW Coefficient of Variation 13.4 % Immature Granulocyte % (Auto) 0.3 % Immature Granulocyte # (Auto) 0.03 K/uL Red Blood Cell Morphology Unremarkable Prothrombin Time 10.2 SECONDS Prothromb Time International Ratio 1.0 Activated Partial Thromboplast Time 25.6 SECONDS Partial Thromboplastin Ratio 1.0 Sodium Level 144 mmol/L Potassium Level 3.7 mmol/L Chloride Level 111 mmol/L Carbon Dioxide Level 26 mmol/L Anion Gap 7.0 mmol/L Blood Urea Nitrogen 15 mg/dl Creatinine 0.63 mg/dl Est Creatinine Clear Calc Drug Dose 112.6 ml/min Estimated GFR () 122.9 Estimated GFR (Non- 106.1 BUN/Creatinine Ratio 23.8 Random Glucose 109 mg/dl Calcium Level 8.3 mg/dl Magnesium Level 2.4 mg/dl Total Bilirubin 0.3 mg/dl Direct Bilirubin < 0.1 mg/dl Aspartate Amino Transf (AST/SGOT) 8 U/L Alanine Aminotransferase (ALT/SGPT) 15 U/L Alkaline Phosphatase 69 U/L Total Creatine Kinase 30 U/L Creatine Kinase MB 0.6 ng/ml Creatine Kinase MB Ratio 2.0 Troponin I < 0.015 ng/ml Total Protein 6.3 gm/dl Albumin 3.1 gm/dl Triglycerides Level 113 mg/dl Cholesterol Level 189 mg/dl HDL Cholesterol 57 mg/dl LDL Cholesterol, Calculated 109 mg/dl VLDL Cholesterol, Calculated 23 mg/dl Cholesterol/HDL Ratio 3.3 Assessment and Plan Acute right periventricular infarct with left-sided weakness noted on CT of the head MRI noted for same MRA neck/head neg ECHO pending A1c pending, lipid panel WNL for non-CVA pt, but LDL elevated at 109 in the setting of CVA. Start statin Aspirin 81 mg Hypercoag workup pending Neuro c/s pending PT/OT/speech pending Tobacco use: carol conversation with pt that her CVA was likely related to smoking and that cessation would be necessary Partner was present and agrees Would advise close f/u with PCP and therapist to ensure pt success Has not needed nicotine patch during admission thus far, but would make available on d/c as return to home stressors will likely be an issue
[2016-07-13 11:44] VITALS: BP 159/95; PULSE 78; TEMP 36.9; O2SAT 96
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
[2016-07-13 15:04] VITALS: BP 158/109; PULSE 68; TEMP 36.8; O2SAT 97
[2016-07-13] MEDS: LORAZEPAM INJ 0.5 MG in SYRINGE 0.75 ML IV PRN ×2 (18:37→22:55)
[2016-07-13 20:00] VITALS: BP 160/114; PULSE 70; TEMP 36.5; O2SAT 96
[2016-07-14] VITALS (9 sets, daily range): BP systolic 138–166; BP diastolic 92–102; PULSE 66–72; TEMP 36.4–37; O2SAT 94–98; Ht 165.1 cm; Wt 76.4 kg
[2016-07-14 07:03] LABS: ESTIMATED AVERAGE GLUCOSE 123 mg/dl; HA1C FLAG Normal (Normal)
--- NOTE | 2016-07-14 10:48 | Family Medicine Progress Note ---
Progress Note Date of Service Jul 14, 2016. Subjective Pt evaluation today including: conversation w/ patient, physical exam, chart review, lab review, review of studies, review of inpatient medication list Pain: 0/10 PO Intake: WNL Voiding: no voiding problems Improved weakness according to patient but is not back to her BL as of yet She is feeling generally well Was unsure of why she had not gotten breakfast this morning and asked her friend to get pancakes, was unaware she was NPO questions and concerns were addressed Constitutional: No fever Eyes: No worsening of vision ENT: No hearing loss Respiratory: No cough, No dyspnea on exertion, No shortness of breath, No sputum, No wheezing Cardiovascular: No chest pain Abdomen: No constipation, No diarrhea, No nausea, No pain, No vomiting Musculoskeletal: + problem reported (weakness on left side), No joint pain, No muscle pain Neurologic: + balance problems, + weakness, No memory loss Endo: No fatigue Medications Medications Administered Medications (Trade) Dose Ordered Sig/Maurice Route Start Time Stop Time Status Last Admin Dose Admin Aspirin 81 mg 81 mg QAM PO 07/13/16 09:00 07/13/16 11:19 DC 07/13/16 08:19 81 MG Potassium Chloride/Sodium Chloride (Nss + 20meq KCl 1000ml) 1,000 ml @ 75 mls/hr [id number] IV 07/12/16 19:00 08/11/16 18:59 07/13/16 21:18 75 MLS/HR Lorazepam (Ativan Inj) 0.5 mg Q4H PRN IV 07/12/16 14:15 08/11/16 14:14 07/12/16 22:24 0.5 MG Lorazepam 2 mg 2 mg STK-MED ONCE .ROUTE 07/12/16 15:05 07/12/16 15:08 DC 07/12/16 15:11 0.5 MG Lorazepam/Syringe (Ativan Inj/ Syringe) 1 ml @ 1 mls/min Q4H PRN IV 07/12/16 18:30 08/11/16 18:29 07/13/16 22:55 1 MLS/MIN Objective Vital Signs Date Time Temp Pulse Resp B/P Pulse Ox O2 Delivery O2 Flow Rate FiO2 07/14/16 07:16 36.5 72 16 166/98 96 Room Air 07/14/16 04:00 Room Air 07/14/16 04:00 36.5 68 18 143/96 97 Room Air 07/14/16 00:00 Room Air 07/14/16 00:00 36.5 66 16 150/102 98 Room Air 07/14/16 00:00 Room Air 07/14/16 00:00 36.5 66 16 150/102 98 Room Air 07/13/16 20:00 36.5 70 20 160/114 96 Room Air 07/13/16 20:00 Room Air 07/13/16 16:00 Room Air 07/13/16 15:04 36.8 68 20 158/109 97 07/13/16 12:00 Room Air 07/13/16 11:44 36.9 78 16 159/95 96 Room Air Physical Exam General Appearance: WD/WN, no apparent distress Eyes: normal inspection ENT: normal ENT inspection Neck: supple Respiratory/Chest: lungs clear, normal breath sounds, no respiratory distress, no accessory muscle use Cardiovascular: regular rate, rhythm, no murmur Abdomen: normal bowel sounds, non tender, soft Extremities: non-tender, normal inspection, no pedal edema, no calf tenderness , + pertinent finding (weakness in left UE, right is BL) Neurologic/Psychiatric: design project manager II-XII nml as tested, alert, normal mood/affect, oriented x 3 Skin: normal color, warm/dry, no rash Lymphatic: no adenopathy Laboratory Results Results Past 24 Hours Test 07/14/16 06:00 Range/Units Assessment and Plan This is a 45 yo f with a right periventricular infarct confirmed by imaging. She has had improvement in her left sided weakness which originally brought her to the hospital but is ongoing. An echo was unremarkable, HBA1C was 5.9% and hypercoag work up is still pending. Because of her age it would be appropriate to conduct a RENE to r/o any structural abnormalities Acute right periventricular infarct with left-sided weakness noted on CT of the head - patient is generally improving - confirmed on both CT and MRi - MRA was WNL - Echo Left ventricular systolic function is normal. * Patent foramen ovale * There is mild to moderate mitral regurgitation. * Right ventricular systolic pressure is normal. * Doppler evaluation suggestive of diastolic dysfunction - HBA1C- 5.9% - prediabetic - DM educator consult - Lipid panel - Atorvastatin 20 mg - ASA 81 mg daily - Hypercoag w/u pending - Speech pending - neuro consult- appreciate input - plan was for RENE today but the patient ate breakfast, will plan for tomorrow - considering the patient's patent foramen ovale, will order bilat duplex of LE to r/o DVT as source of the clot Tobacco Abuse - Continue to not req a patch - continued encouragement to refrain from using tobacco Resident Physician Supervision Note: I interviewed and examined the patient. Discussed with Dr. Storm and agree with findings and plan as documented in the note. Any exceptions or clarifications are listed here: None Documented By: Ej Dave feeling ok quitting smoking thinking about how to otherwise manage stress vitals noted nad, breathing unlabored, no pallor or icterus cva - w PFO, for RENE tomorrow to better delineate risk and ?other such as atrial clot (TTE would not detect this well) -asa for now, supportive care. likely rehab tomorrow DVT proph - lovenox otehrwise as above Continued [facility] stay due to: other Discharge planning: rehab hospital
[2016-07-14] MEDS: ATORVASTATIN 20 MG TAB PO SCH (10:58)
[2016-07-14] MEDS: NSS + 20MEQ KCL 1000ML 1,000 ML IV SCH (10:58)
[2016-07-14] MEDS: ASPIRIN 81 MG ECTAB PO SCH (10:58)
[2016-07-14 11:05] LABS: HEMATOCRIT 43.6 % (37-47); MEAN CELL VOLUME 91.4 fL (80-100); MEAN CORPUSCULAR HGB CONC 33.9 g/dl (32-36); MEAN PLATELET VOLUME 8.9 fL (7.4-10.4); PLATELET COUNT 278 K/uL (130-400); RED BLOOD COUNT 4.77 M/uL (4.2-5.4); WHITE BLOOD COUNT 7.57 K/uL (4.8-10.8)
[2016-07-14 11:32] LABS: BUN/CREATININE RATIO 13.2 (10-20); CALCIUM 8.7 mg/dl (8.5-10.1); CREATININE 0.86 mg/dl (0.60-1.20)
[2016-07-14] MEDS: LORAZEPAM INJ 0.5 MG in SYRINGE 0.75 ML IV PRN ×2 (14:42→23:51)
--- NOTE | 2016-07-14 16:11 | DIAGNOSTIC IMAGING REPORT ---
BILATERAL LOWER EXTREMITY VENOUS DOPPLER HISTORY: patent formaen ovale, stroke COMPARISON STUDY: None. FINDINGS: There is normal compressibility, flow, and augmentation within the bilateral lower extremity deep venous systems. IMPRESSION: No DVT within the right or left lower extremity. Electronically signed by: Demetrio Sweeney M.D. 07/14/2016 4:10 PM Dictated Date/Time: 07/14/2016 4:10 PM
[2016-07-15] VITALS (25 sets, daily range): BP systolic 131–194; BP diastolic 79–126; PULSE 63–91; TEMP 36.2–36.9; O2SAT 92–98
[2016-07-15] MEDS: NSS + 20MEQ KCL 1000ML 1,000 ML IV SCH ×2 (01:59→13:17)
[2016-07-15 07:42] LABS: HEMATOCRIT 43.8 % (37-47); MEAN CELL VOLUME 92.6 fL (80-100); MEAN CORPUSCULAR HEMOGLOBIN 31.9 pg (25-34); MEAN CORPUSCULAR HGB CONC 34.5 g/dl (32-36); MEAN PLATELET VOLUME 9.3 fL (7.4-10.4); PLATELET COUNT 266 K/uL (130-400); RED BLOOD COUNT 4.73 M/uL (4.2-5.4); WHITE BLOOD COUNT 7.89 K/uL (4.8-10.8)
[2016-07-15 08:22] LABS: BLOOD UREA NITROGEN 12 mg/dl (7-18); BUN/CREATININE RATIO 18.2 (10-20); CALCIUM 9.2 mg/dl (8.5-10.1); CARBON DIOXIDE 28 mmol/L (21-32); CHLORIDE 109 mmol/L (98-107); CREATININE 0.67 mg/dl (0.60-1.20); GLUCOSE 99 mg/dl (70-99); SODIUM 143 mmol/L (136-145)
[2016-07-15] MEDS: ASPIRIN 81 MG ECTAB PO SCH (08:30)
[2016-07-15] MEDS: ATORVASTATIN 20 MG TAB PO SCH (08:30)
[2016-07-15] MEDS: ENOXAPARIN 40 MG/0.4 ML SYR SQ SCH (08:31)
[2016-07-15] MEDS ORDERED: FENTANYL CITRATE INJ 50 MCG/1 ML 2 ML VIAL ONE (14:14)
[2016-07-15] MEDS ORDERED: BENZOCAIN/TETRACA/BUTAM SPRAY 200 APPLN/20 GM SPRY ONE (14:14)
[2016-07-15] MEDS ORDERED: MIDAZOLAM HCL 1 MG/ML 2ML VIAL ONE ×2 (14:14→15:10)
[2016-07-15] MEDS ORDERED: CANNULA ONE ×2 (14:14)
--- NOTE | 2016-07-15 14:28 | Procedure Note ---
Pre-Mod Sedation Assessment General Date of Moderate Sedation: Jul 15, 2016. Vital Signs: Vital Signs Past 12 Hours Date Time Temp Pulse Resp B/P Pulse Ox O2 Delivery O2 Flow Rate FiO2 07/15/16 12:00 Room Air 07/15/16 11:51 36.9 70 18 148/96 98 Room Air 07/15/16 10:11 82 16 182/110 94 Room Air 07/15/16 08:00 Room Air 07/15/16 07:31 36.6 77 16 147/94 96 Room Air 07/15/16 04:00 Room Air 07/15/16 03:51 36.6 67 16 143/89 94 Room Air Review Cardiovascular: regular rate, rhythm, no murmur Abdomen: soft Lungs: lungs clear Pre-Sedation Airway Assessment Oral Cavity: WNL Short Thick Neck: No Hx of Sleep Apnea: No Smoking Status: Current Every Day Smoker Procedure Planning Contraindications-for Mod Sed: None Yes Notes The planned sedation has been discussed with the patient and consent obtained. I have identified the patient, determined the appropriateness of sedation and have assessed the patient immediately prior to the procedure. All medicine(s) and interventions are by my order.
[2016-07-15] MEDS ORDERED: ASPEC81 PO (15:10)
[2016-07-15] MEDS ORDERED: LPT20 PO (15:10)
--- NOTE | 2016-07-15 15:29 | Family Medicine Progress Note ---
Progress Note Date of Service Jul 15, 2016. Subjective Pt evaluation today including: conversation w/ patient, physical exam, chart review, lab review Pain: 0/10 PO Intake: NPO Voiding: no voiding problems Ongoing improvement of symptoms Plan is for patient to have RENE today and potential d/c to [facility] for rehab Constitutional: No fever Eyes: No worsening of vision ENT: No hearing loss Respiratory: No cough, No dyspnea on exertion, No shortness of breath, No sputum, No wheezing Cardiovascular: No chest pain Abdomen: No constipation, No diarrhea, No nausea, No pain, No vomiting Musculoskeletal: No joint pain, No muscle pain Neurologic: + weakness (left> r but improving), No balance problems Endo: No fatigue Skin: No rash Medications Medications Administered Medications (Trade) Dose Ordered Sig/Maurice Route Start Time Stop Time Status Last Admin Dose Admin Aspirin 81 mg 81 mg QAM PO 07/13/16 09:00 07/13/16 11:19 DC 07/13/16 08:19 81 MG Potassium Chloride/Sodium Chloride (Nss + 20meq KCl 1000ml) 1,000 ml @ 75 mls/hr [id number] IV 07/12/16 19:00 08/11/16 18:59 07/15/16 13:17 75 MLS/HR Lorazepam (Ativan Inj) 0.5 mg Q4H PRN IV 07/12/16 14:15 08/11/16 14:14 07/12/16 22:24 0.5 MG Lorazepam 2 mg 2 mg STK-MED ONCE .ROUTE 07/12/16 15:05 07/12/16 15:08 DC 07/12/16 15:11 0.5 MG Lorazepam/Syringe (Ativan Inj/ Syringe) 1 ml @ 1 mls/min Q4H PRN IV 07/12/16 18:30 08/11/16 18:29 07/14/16 23:51 1 MLS/MIN Atorvastatin Calcium (Lipitor Tab) 20 mg QAM PO 07/14/16 09:00 08/13/16 08:59 07/14/16 10:58 20 MG Aspirin (Ecotrin Tab) 81 mg QAM PO 07/14/16 09:00 08/13/16 08:59 07/14/16 10:58 81 MG Enoxaparin Sodium (Lovenox Inj) 40 mg QAM SQ 07/15/16 09:00 08/14/16 08:59 07/15/16 08:31 40 MG Objective Vital Signs Date Time Temp Pulse Resp B/P Pulse Ox O2 Delivery O2 Flow Rate FiO2 07/15/16 12:00 Room Air 07/15/16 11:51 36.9 70 18 148/96 98 Room Air 07/15/16 10:11 82 16 182/110 94 Room Air 07/15/16 08:00 Room Air 07/15/16 07:31 36.6 77 16 147/94 96 Room Air 07/15/16 04:00 Room Air 07/15/16 03:51 36.6 67 16 143/89 94 Room Air 07/14/16 23:59 Room Air 07/14/16 23:46 36.4 71 18 152/92 95 Room Air 07/14/16 20:00 98 Room Air 07/14/16 19:48 37.0 66 18 159/100 96 Room Air 07/14/16 16:17 36.9 72 16 147/95 94 Room Air 07/14/16 16:00 98 Room Air Physical Exam General Appearance: no apparent distress Eyes: normal inspection ENT: normal ENT inspection Neck: supple Respiratory/Chest: lungs clear, normal breath sounds, no respiratory distress, no accessory muscle use Cardiovascular: regular rate, rhythm, no murmur Abdomen: normal bowel sounds, non tender, soft Extremities: normal inspection, no pedal edema, no calf tenderness, + pertinent finding (weakness L>R but subtle) Neurologic/Psychiatric: alert, normal mood/affect, oriented x 3 Skin: normal color, warm/dry, no rash Lymphatic: no adenopathy Laboratory Results Results Past 24 Hours Test 07/15/16 07:12 07/15/16 08:59 Range/Units White Blood Count 7.89 4.8-10.8 K/uL Red Blood Count 4.73 4.2-5.4 M/uL Hemoglobin 15.1 12.0-16.0 g/dL Hematocrit 43.8 37-47 % Mean Corpuscular Volume 92.6 80-100 fL Mean Corpuscular Hemoglobin 31.9 25-34 pg Mean Corpuscular Hemoglobin Concent 34.5 32-36 g/dl RDW Standard Deviation 44.9 36.4-46.3 fL RDW Coefficient of Variation 13.2 11.5-14.5 % Platelet Count 266 130-400 K/uL Mean Platelet Volume 9.3 7.4-10.4 fL Sodium Level 143 136-145 mmol/L Potassium Level 4.2 3.5-5.1 mmol/L Chloride Level 109 98-107 mmol/L Carbon Dioxide Level 28 21-32 mmol/L Anion Gap 6.0 3-11 mmol/L Blood Urea Nitrogen 12 7-18 mg/dl Creatinine 0.67 0.60-1.20 mg/dl Est Creatinine Clear Calc Drug Dose 104.8 ml/min Estimated GFR () 120.5 Estimated GFR (Non- 103.9 BUN/Creatinine Ratio 18.2 10-20 Random Glucose 99 70-99 mg/dl Calcium Level 9.2 8.5-10.1 mg/dl Assessment and Plan This is a 45 yo f with a right periventricular infarct confirmed by imaging. She has had improvement in her left sided weakness which originally brought her to the hospital but is ongoing. An echo was unremarkable, HBA1C was 5.9% and hypercoag work up is still pending. Because of her age it would be appropriate to conduct a RENE to r/o any structural abnormalities which is pending Acute right periventricular infarct with left-sided weakness noted on CT of the head - patient is generally improving - confirmed on both CT and MRi - MRA was WNL - Echo Left ventricular systolic function is normal. * Patent foramen ovale * There is mild to moderate mitral regurgitation. * Right ventricular systolic pressure is normal. * Doppler evaluation suggestive of diastolic dysfunction - HBA1C- 5.9% - prediabetic - DM educator consult - Lipid panel - Atorvastatin 20 mg - ASA 81 mg daily - Hypercoag w/u pending - Speech pending - neuro consult- appreciate input - RENE results pending - bilat doppler WNL Tobacco Abuse - Continue to not req a patch - continued encouragement to refrain from using tobacco Dispo: plan is d/c to [facility] with auth pending Resident Physician Supervision Note: I interviewed and examined the patient. Discussed with Dr. Storm and agree with findings and plan as documented in the note. Any exceptions or clarifications are listed here: None Documented By: Ej Dave d/w cardiology - RENE and input appreciated nauseated post RENE d/w family extensively vitals noted breathing unlabored stroke - likely ASD and tobacco -asa -referral as outpt to adult congenital -rehab ?hopefully tomorrow if approved Continued [facility] stay due to: other Discharge planning: rehab hospital
--- NOTE | 2016-07-15 16:06 | Procedure Note ---
Post-Mod Sedation Assessment General Date of Moderate Sedation Jul 15, 2016. Vital Signs: Vital Signs Past 12 Hours Date Time Temp Pulse Resp B/P Pulse Ox O2 Delivery O2 Flow Rate FiO2 07/15/16 15:55 82 14 153/99 94 Room Air 07/15/16 15:45 81 14 145/95 94 Room Air 07/15/16 15:36 81 14 131/98 93 Room Air 07/15/16 15:25 88 16 161/93 96 Nasal Cannula 2.0 07/15/16 12:00 Room Air 07/15/16 11:51 36.9 70 18 148/96 98 Room Air 07/15/16 10:11 82 16 182/110 94 Room Air 07/15/16 08:00 Room Air 07/15/16 07:31 36.6 77 16 147/94 96 Room Air Review - Discharge Criteria Vital Signs Stable: Yes Alert/Oriented/Conversant: Yes Returned to Baseline Mental St: Yes Nausea Absent/Minimal: Yes Pain/Discomfort/Absent/Minimal: Yes Normal/Baseline Respirations: Yes Active Bleeding?: No
--- NOTE | 2016-07-15 16:09 | Cardiology Procedure Brief Nt ---
Preliminary Cardiology Note Procedure Date Jul 15, 2016. Pre-Procedure Diagnosis Stroke Post-Procedure Diagnosis ASD Procedure(s) Performed RENE Electric Frying Pan Repairer Roseanna Drying Machine Operator Package Yarns(s) Sloss Estimated Blood Loss none Preliminary Findings PRELIM: Study terminated due to wretching and coughing. Study suggestive of ASD with left to right shunting. Full report to follow. Recommendations Recommend cardiology evaluation (consider adult congenital heart program). Can be seen locally with general cardiology. Discussed with Dr. Dave. Specimens none Complication(s) None Disposition PCU
[2016-07-15] MEDS ORDERED: HydrALAZINE HCL 20 MG/ML VIAL IV. STA (19:04)
[2016-07-16 00:16] VITALS: BP 154/98; PULSE 74; TEMP 36.3; O2SAT 94
[2016-07-16] MEDS: NSS + 20MEQ KCL 1000ML 1,000 ML IV SCH (03:19)
[2016-07-16 04:18] VITALS: BP 153/82; PULSE 71; TEMP 36.5; O2SAT 97
[2016-07-16 06:09] LABS: HEMATOCRIT 43.5 % (37-47); MEAN CORPUSCULAR HEMOGLOBIN 31.4 pg (25-34); MEAN CORPUSCULAR HGB CONC 34.5 g/dl (32-36); MEAN PLATELET VOLUME 9.3 fL (7.4-10.4); PLATELET COUNT 278 K/uL (130-400); RED BLOOD COUNT 4.78 M/uL (4.2-5.4); WHITE BLOOD COUNT 7.88 K/uL (4.8-10.8)
[2016-07-16 06:35] LABS: BUN/CREATININE RATIO 17.3 (10-20); CALCIUM 8.7 mg/dl (8.5-10.1); CREATININE 0.71 mg/dl (0.60-1.20)
[2016-07-16 07:46] VITALS: BP 152/100; PULSE 72; TEMP 36.6; O2SAT 94
[2016-07-16] MEDS: ASPIRIN 81 MG ECTAB PO SCH (08:37)
[2016-07-16] MEDS: ENOXAPARIN 40 MG/0.4 ML SYR SQ SCH (08:37)
[2016-07-16] MEDS: ATORVASTATIN 20 MG TAB PO SCH (08:37)
--- NOTE | 2016-07-16 10:11 | Discharge Instructions ---
Discharge Instructions Date of Service Jul 16, 2016. Admission Reason for Admission: Cva, Left Sided Weakness Discharge Discharge Diagnosis / Problem: stroke Discharge Goals Goal(s): Diagnostic testing, Therapeutic intervention Activity Recommendations Activity Level: Up Ad Ruby Therapies: Physical Therapy, Occupational Therapy Lifting Limitations: gradually increase as tolerated Exercise/Sports Limitations: gradually increase as tolerated Shower/Bathe: no limitations . Additional Information Patient informed of condition: Yes Advance Directives: No DNR: No Level of Care: Acute Rehab Communicable Disease: No Prognosis: Stable Instructions / Follow-Up Instructions / Follow-Up This is a 45 yo f with a right periventricular infarct confirmed by imaging. She has had improvement in her left sided weakness which originally brought her to the hospital but is ongoing. An echo revealed a PFO, HBA1C was 5.9% and hypercoag work up is still pending. a RENE was completed and confirmed that the patient was suffering from a primary PFO. She was placed on a statin and ASA. We extensively expressed concern about tobacco abuse and to continue refraining from using these products. It is also warranted that the patient follow up with a cardiac surgeon in [facility]. They are currently reviewing her records and arranging a follow up accordingly. Acute right periventricular infarct with left-sided weakness noted on CT of the head - confirmed on both CT and MRi - MRA was WNL - Echo Left ventricular systolic function is normal. * Patent foramen ovale * There is mild to moderate mitral regurgitation. * Right ventricular systolic pressure is normal. * Doppler evaluation suggestive of diastolic dysfunction - HBA1C- 5.9% - prediabetic - DM educator consult - Lipid panel - Atorvastatin 20 mg - rx given - ASA 81 mg daily- rx given - Hypercoag w/u pending - bilat doppler WNL Tobacco Abuse - Continue to not req a patch - continued encouragement to refrain from using tobacco Current Hospital Diet Patient's current hospital diet: AHA Diet (Heart Healthy) Discharge Diet Recommended Diet: AHA Diet (Heart Healthy) Pending Studies Studies pending at discharge: yes List of pending studies: hypercoag w/u Laboratory Results Hemoglobin A1c Test 07/12/16 12:25 Range/Units Estimated Average Glucose 123 mg/dl Hemoglobin A1c 5.9 H 4.5-5.6 % Lipid Panel Test 07/13/16 03:45 Range/Units Triglycerides Level 113 0-150 mg/dl Cholesterol Level 189 0-200 mg/dl HDL Cholesterol 57 mg/dl Cholesterol/HDL Ratio 3.3 LDL Cholesterol, Calculated 109 mg/dl Medical Emergencies . Who to Call and When: Medical Emergencies: If at any time you feel your situation is an emergency, please call 911 immediately. . Non-Emergent Contact Non-Emergency issues call your: Primary Care Provider . . "Provider Documentation" section prepared by Nafisa Storm. Core Measure Problem Core Measures: Stroke Stroke Core Measures Reason no t-PA for Stroke: Treatment not indicated Reason no antithrom by day 2: Treatment not indicated Reason no antithrom at D/C: Treatment not indicated Reason no statin at D/C: Treatment provided - N/A Reason no anticoag w/a fib: Treatment not indicated
[2016-07-16] MEDS ORDERED: IV FLUIDS COMPLETED PRN (10:45)
--- NOTE | 2016-07-16 11:51 | TEE ---
*NOTICE TO RECEIVING LIBERTARIAN AGENCY This information is strictly Confidential and protected under [place] law. [place] law prohibits you from making any further disclosure of this information unless further disclosure is expressly permitted by the written consent of the person to whom it pertains or is authorized by law. A general authorization for the release of medical or other information is not sufficient for this purpose. Hospital accepts no responsibility if the information is made available to any other person, INCLUDING THE PATIENT. Interpretation Summary * Name: MAGED ROBERTO Study Date: 07/15/2016 02:50 PM BP: 161/93 mmHg * Patient Location: [facility]\S\[id number]\S\2 HR: 88 * : 1965 (M/d/yyyy) Gender: Female Height: 65 in * Age: 50 yrs Ethnicity: [place] Weight: 168 lb * Ordering Physician: Ej Dave * Referring Physician: Self, Referred * Performed By: Heather Moreno RDCS * * Reason For Study: CVA * BSA: 1.8 m2 * History: CVA * -- Conclusions -- * RENE: * 1. Normal left ventricular size with hyperdynamic systolic function. Estimated EF 65-70%. No regional wall motion abnormalities. No significant left ventricular hypertrophy. Type 1 diastolic dysfunction. * 2. There is mild mitral regurgitation. * 3. There is an atrial defect of approximately 0.6 cm, suggesting primum ASD. [id number] shunt noted via color Doppler. Further evaluation was limited due to excessive coughing and retching. * 4. Interatrial septum is aneurysmal. * 5. Study was terminated due to excessive coughing/retching as noted above. She was quite awake despite 6 mg of versed and 100 mcg of fentanyl. Consider sedation with anesthesiology if repeat RENE in the future. Procedure Details * RENE Probe #1 utilized for procedure. * The study was performed in Cardiopulmonary Department. * Time out was conducted by the physician, nurse, and electrical laboratory technician with positive identification of patient and procedure. * Informed consent for Transesophageal Echocardiogram was obtained prior to the procedure. * An intravenous line was placed. A topical anesthetic agent was used for oropharangeal anesthesia. A bite block was inserted. * The patient's vital signs, including blood pressure, heart rate, pulse oximetry and cardiac rhythm were monitored throughout the procedure . * Fentanyl 100 mcg was administered for procedural sedation. * Midazolam 6 mg administered for sedation. * The posterior oropharynx was anesthetized using a topical anesthetic spray. A bite guard was inserted. * A multifrequency, multiplane transesopheageal echocardiographic endoscope was inserted and manipulated in the standard fashion to achieve multiplane views. * The transesophageal probe was passed without difficulty. * The usual views were obtained; basal, mid-esophageal, transgastric and aortic views. * A 2D transesophageal echocardiogram with spectral and color flow Doppler was performed. Left Ventricle * Normal left ventricular size with hyperdynamic systolic function. Estimated EF 65-70%. No regional wall motion abnormalities. No significant left ventricular hypertrophy. Type 1 diastolic dysfunction. Right Ventricle * The right ventricle is normal in size and function. Atria * The left atrial size is normal. * No thrombus is detected in the left atrial appendage. * Right atrial size is normal. * There is an atrial defect of approximately 0.6 cm, suggesting primum ASD. [id number] shunt noted via color Doppler. Further evaluation was limited due to excessive coughing and wretching. Mitral Valve * The mitral valve is normal in structure and function. * There is no mitral valve stenosis. * There is mild mitral regurgitation. Tricuspid Valve * The tricuspid valve anatomy is normal. * There is no tricuspid stenosis. * There is mild tricuspid regurgitation. Aortic Valve * The aortic valve is normal in structure and function. * The aortic valve is trileaflet. * The aortic valve opens well. * No aortic regurgitation is present. Pulmonic Valve * The pulmonic valve is not well seen, but is grossly normal. * Trace pulmonic valvular regurgitation. Great Vessels * The aortic root is normal size. * Ascending aorta of normal dimension * Minimal atherosclerosis noted within visualized portion of thoracic aorta. Pericardium * There is no pericardial effusion. MMode 2D Measurements and Calculations Ao root diam 3.5 cm Ao root area 9.7 cm\S\2 asc Aorta Diam 2.7 cm Doppler Measurements and Calculations MV E max reji 47.0 cm/sec MV A max reji 59.0 cm/sec MV E/A 0.80 MV dec time 0.18 sec MR max reji 638.4 cm/sec MR max PG 163.0 mmHg PA V2 max 98.7 cm/sec PA max PG 3.9 mmHg TR max reji 215.9 cm/sec
[2016-07-16 13:35] VITALS: BP 152/100; PULSE 72; TEMP 36.6; O2SAT 94
--- NOTE | 2016-07-16 16:42 | Discharge Summary ---
Discharge Summary Date of Service Jul 16, 2016. (Nafisa Storm MD) Discharge Summary Admission Date: Jul 12, 2016 at 17:31 Discharge Date: Jul 15, 2016 Discharge Disposition: Rehab Principal Diagnosis: stroke (Nafisa Storm MD) Medication Reconciliation New Medications: Aspirin (Aspirin EC Low Dose) 81 Mg Ectab 81 MG PO QAM for 30 Days, #30 TAB Atorvastatin (Atorvastatin Calcium) 20 Mg Tab 20 MG PO QAM for 30 Days, #30 TAB Continued Medications: Probiotic Product (Probiotic) 1 Cap Cap 1 CAP PO DAILY Discontinued Medications: Moxifloxacin Hcl (Avelox) 400 Mg Tab 400 MG PO DAILY Prednisone (Prednisone) 20 Mg Tab 0 PO DAILY, TAB 3 TABS DAILY FOR 5 DAYS, THEN 2 TABS DAILY FOR DAYS, THEN 1 TAB DAILY FOR DAYS. Discharge Exam Patient doing well on discharge, weakness has ongoing improvement discussed the d/c and instructions with patient and partner and both agreeable to d/c Review of Systems: Constitutional: No fever Eyes: No worsening of vision ENT: No hearing loss Respiratory: No cough, No dyspnea at rest, No dyspnea on exertion, No shortness of breath, No sputum, No wheezing Cardiovascular: No chest pain Abdomen: No constipation, No diarrhea, No nausea, No pain, No vomiting Musculoskeletal: No joint pain, No muscle pain Genitourinary - Female: No dysuria, No hematuria Neurologic: + weakness (L>R), No balance problems, No numbness/tingling Psychiatric: No depression symptoms Endocrine: No fatigue Integumentary: No rash Physical Exam: General Appearance: no apparent distress Eyes: normal inspection ENT: normal ENT inspection Neck: supple Respiratory/Chest: normal breath sounds, no respiratory distress, no accessory muscle use Cardiovascular: regular rate, rhythm, no murmur Abdomen / GI: normal bowel sounds, non tender, soft Extremities: no calf tenderness, no pedal edema Neurologic/Psychiatric: alert, normal mood/affect, oriented x 3 Skin: normal color, warm/dry, no rash Lymphatic: no adenopathy (Nafisa Storm MD) Hospital Course This is a 45 yo f with a right periventricular infarct confirmed by imaging. She has had improvement in her left sided weakness which originally brought her to the hospital but is ongoing. An echo revealed a PFO, HBA1C was 5.9% and hypercoag work up is still pending. a RENE was completed and confirmed that the patient was suffering from a primary PFO. She was placed on a statin and ASA. We extensively expressed concern about tobacco abuse and to continue refraining from using these products. It is also warranted that the patient follow up with a cardiac surgeon in [facility]. They are currently reviewing her records and arranging a follow up accordingly. Acute right periventricular infarct with left-sided weakness noted on CT of the head - confirmed on both CT and MRi - MRA was WNL - Echo Left ventricular systolic function is normal. * Patent foramen ovale * There is mild to moderate mitral regurgitation. * Right ventricular systolic pressure is normal. * Doppler evaluation suggestive of diastolic dysfunction - HBA1C- 5.9% - prediabetic - DM educator consult - Lipid panel - Atorvastatin 20 mg - rx given - ASA 81 mg daily- rx given - Hypercoag w/u pending - bilat doppler WNL Tobacco Abuse - Continue to not req a patch - continued encouragement to refrain from using tobacco Total Time Spent: Less than 30 minutes This includes examination of the patient, discharge planning, medication reconciliation, and communication with other providers. (Nafisa Storm MD) Resident Physician Supervision Note: I interviewed and examined the patient. Discussed with Dr. Storm and agree with findings and plan as documented in the note. Any exceptions or clarifications are listed here: None Documented By: Ej Dave feeling better ready to go to rehab. notes she's now an ex smoker vitals noted nad pleasant, breathing unlabored no pallor or icterus stroke - related to PFO and tobacco. asa. f/u after rehab w adult congenital cardiology to discuss +/- of closure otherwise as above Total Time Spent: Less than 30 minutes (Ej Dave, D.O.) Discharge Instructions Please refer to the electronic Patient Visit Report (Discharge Instructions) for additional information. (Nafisa Storm MD) Additional Copies To Nasir Stacy M.D.
[2016-07-16 17:38] LABS: ANTITHROMBINIII ACTIVITY** 119 % activity (80-120); PROTEIN C ACTIVITY** TC 1777X 170 % (70-180); PROTEIN S ACT(FUNCT)**1779X 106 % (60-140)
[2016-07-17 13:43] LABS: B2 GLYCOPROTEIN IGA <9 SAU (<=20); B2 GLYCOPROTEIN IGG <9 SGU (<=20); B2 GLYCOPROTEIN IGM <9 SMU (<=20); LUPUS ANTICOAGULANT** TC36573X Negative (Negative)
== END 2016-07-16 14:49 | DRG 65 ==
LOC: ENRESERVTM → ENRESERVDT → C.EDB 11:10 → C.MED 17:31 → UNDODISIN 07-16 14:49
PROVIDERS: ADMIT Hospitalist; ATTEND Family Medicine
DX: I63.9 Cerebral infarction, unspecified (principal); Q21.1 Atrial septal defect; G81.94 Hemiplegia, unspecified affecting left nondominant side; Z83.3 Family history of diabetes mellitus; Z82.49 Family history of ischemic heart disease and other diseases of the circulatory system; F17.210 Nicotine dependence, cigarettes, uncomplicated; Z82.3 Family history of stroke; Z82.5 Family history of asthma and other chronic lower respiratory diseases

== ENCOUNTER → 2016-12-22 | Outpatient (CLI) | payer BC ==
[~2016-12-22] MED LIST changes: +ASPEC81 PO; -IBUP-103 PO; +LPT20 PO; +MISCCAP80 PO
[2016-12-22 12:34] LABS: ALT/SGPT 27 U/L (12-78); AST/SGOT 18 U/L (15-37); BLOOD UREA NITROGEN 10 mg/dl (7-18); CALCIUM 9.6 mg/dl (8.5-10.1); CARBON DIOXIDE 30 mmol/L (21-32); CHLORIDE 108 mmol/L (98-107); CREATININE 0.77 mg/dl (0.60-1.20); GLUCOSE 101 mg/dl (70-99); POTASSIUM 4.1 mmol/L (3.5-5.1); SODIUM 140 mmol/L (136-145)
[2016-12-22 12:36] LABS: ALKALINE PHOSPHATASE 81 U/L (45-117); CHOLESTEROL 187 mg/dl (0-200); CHOLESTEROL/HDL RATIO 2.5; HDL CHOLESTEROL 75 mg/dl; LDL CHOLESTEROL CALCULATED 97 mg/dl; TRIGLYCERIDES 77 mg/dl (0-150); VERY LOW DENSITY LIPOPROT CALC 15 mg/dl
[2016-12-22 12:37] LABS: HEMATOCRIT 46.3 % (37-47); MEAN CORPUSCULAR HEMOGLOBIN 30.5 pg (25-34); MEAN CORPUSCULAR HGB CONC 32.8 g/dl (32-36); MEAN PLATELET VOLUME 10.3 fL (7.4-10.4); PLATELET COUNT 258 K/uL (130-400); RED BLOOD COUNT 4.98 M/uL (4.2-5.4); WHITE BLOOD COUNT 5.84 K/uL (4.8-10.8)
== END | disposition home or self-care (01) ==
LOC: C.LABBFT 07:50
PROVIDERS: ATTEND Internal Medicine
DX: I63.9 Cerebral infarction, unspecified (principal)

== ENCOUNTER → 2017-11-27 | Outpatient (CLI) | payer BC ==
[~2017-11-27] MED LIST changes: -ASPEC81 PO; +ASPI-320 PO
[2017-11-27 17:32] LABS: BASO % 0.5 %; BASO ABS # 0.03 K/uL (0-0.2); EOS % 2.7 %; EOS ABS # 0.17 K/uL (0-0.5); HEMATOCRIT 45.2 % (37-47); HEMOGLOBIN 15.4 g/dL (12.0-16.0); LYMPH % 42.4 %; LYMPH ABS # 2.63 K/uL (1.2-3.4); MEAN CELL VOLUME 91.7 fL (80-100); MEAN CORPUSCULAR HEMOGLOBIN 31.2 pg (25-34); MEAN CORPUSCULAR HGB CONC 34.1 g/dl (32-36); MEAN PLATELET VOLUME 10.3 fL (7.4-10.4); MONO % 5.6 %; MONO ABS # 0.35 K/uL (0.11-0.59); NEUT % 48.8 %; NEUT ABS # 3.02 K/uL (1.4-6.5); PLATELET COUNT 263 K/uL (130-400); RED CELL DISTRIBUTION WIDTH CV 13.3 % (11.5-14.5); RED CELL DISTRIBUTION WIDTH SD 44.1 fL (36.4-46.3)
[2017-11-27 17:59] LABS: ALKALINE PHOSPHATASE 83 U/L (45-117); ALT/SGPT 19 U/L (12-78); AST/SGOT 15 U/L (15-37); BLOOD UREA NITROGEN 8 mg/dl (7-18); CALCIUM 9.2 mg/dl (8.5-10.1); CARBON DIOXIDE 27 mmol/L (21-32); CHOLESTEROL 239 mg/dl (0-200); CREATININE 0.79 mg/dl (0.60-1.20); GLUCOSE 95 mg/dl (70-99); LDL CHOLESTEROL CALCULATED 143 mg/dl; POTASSIUM 4.4 mmol/L (3.5-5.1); SODIUM 137 mmol/L (136-145); TOTAL PROTEIN 8.3 gm/dl (6.4-8.2)
== END | disposition home or self-care (01) ==
LOC: C.LABBFT 14:36
PROVIDERS: ATTEND Internal Medicine
DX: I63.9 Cerebral infarction, unspecified (principal)